=== PATIENT | male | born 1995 | race Caucasian/White ===

== ENCOUNTER 2018-01-23 10:51 | Emergency (ER) | payer OTHER ==
[~2018-01-23] VITALS: Ht 182.9 cm; Wt 65.8 kg
[2018-01-23] MEDS ORDERED: NOVOLOG100 UNIT/1 SUBQ (11:08)
[2018-01-23] MEDS ORDERED: LEVEMIR SUBQ (11:09)
[2018-01-23 11:30] LABS: URINE BILIRUBIN NEGATIVE (Negative); URINE BLOOD NEGATIVE (Negative); URINE CLARITY CLEAR; URINE COLOR YELLOW; URINE GLUCOSE-RANDOM 3+ (Negative); URINE KETONES NEGATIVE (Negative); URINE LEUKOCYTES-REFLEX NEGATIVE (Negative); URINE NITRITE-REFLEX NEGATIVE (Negative); URINE PROTEIN NEGATIVE (Negative); URINE UROBILINOGEN 0.2 E.U./dl (0.2-1.0)
[2018-01-23 11:35] LABS: BE -2.1 mmol/L (-2 to +3); HCO3 22.8 mmol/L (22.0-26.0); PCO2 39.3 mmHg (35.0-45.0); PO2 71.8 mmHg (75.0-100.0); pH 7.381 (7.340-7.450)
[2018-01-23 11:36] LABS: ABSOLUTE BASOPHILS 0.1 thou/uL (0.0-0.2); ABSOLUTE EOSINOPHILS 0.3 thou/uL (0.0-0.7); ABSOLUTE LYMPHOCYTES 1.9 thou/uL (0.8-5.3); ABSOLUTE MONOCYTES 0.7 thou/uL (0.0-1.2); ABSOLUTE NEUTROPHILS 5.9 thou/uL (1.6-8.1); BASOPHILS 0.9 %; EOSINOPHILS 3.4 %; HEMOGLOBIN 9.9 gm/dL (14.0-18.0); LYMPHOCYTES 21.2 %; MCH 25.5 pg (26.0-34.0); MCHC 32.9 g/dL (28.0-37.0); MCV 77.5 fL (80.0-100.0); MONOCYTES 7.5 %; MPV 7.9 fl. (7.2-11.1); NUCLEATED RBCS 0 /100WBC; PLATELET COUNT* 371 thou/uL (150-400); RBC 3.88 mil/uL (4.50-6.00); RDW-CV 16.5 % (10.5-14.5); WBC 8.8 thou/uL (4.0-11.0)
[2018-01-23 11:54] LABS: APTT 24.6 Seconds (25.0-31.3); PROTIME 9.9 Seconds (9.20-11.50)
[2018-01-23 12:42] LABS: CALCIUM 8.7 mg/dL (8.5-10.1); CREATININE 1.5 mg/dL (0.6-1.3)
[2018-01-23 12:45] LABS: POTASSIUM 5.2 mmol/L (3.5-5.1)
[2018-01-23 12:49] LABS: ALBUMIN 3.4 g/dL (3.4-5.0); TOTAL BILIRUBIN 0.1 mg/dL (<0.1-1.0); TOTAL PROTEIN 7.2 g/dL (6.4-8.2)
[2018-01-23] MEDS ORDERED: ULTRAM 50MG TAB50 MG PO (13:32)
[2018-01-23] MEDS ORDERED: ZOFRAN ODT4 MG SUBLING (13:32)
[2018-01-23 14:32] VITALS: BP 120/69
--- NOTE | 2018-01-23 14:32 | EKG ---
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
== END 2018-01-23 14:32 | disposition home or self-care (01) ==
LOC: M.ERS 10:51
PROVIDERS: Family Medicine
DX: E11.9 Type 2 diabetes mellitus without complications (principal); R10.84 Generalized abdominal pain; F17.210 Nicotine dependence, cigarettes, uncomplicated; Z88.6 Allergy status to analgesic agent; Z90.49 Acquired absence of other specified parts of digestive tract; Z79.4 Long term (current) use of insulin